=== PATIENT | male | born 1965 | race Caucasian/White ===

== ENCOUNTER 2017-11-08 18:26 | Emergency (ER) | payer BC ==
[2017-11-08] MEDS ORDERED: diphenhydrAMINE 50 MG/ML SDV IVPUSH ONE (19:04)
[2017-11-08] MEDS ORDERED: Haloperidol Lactate 5 MG/ML SDV IM ONE (19:04)
[2017-11-08] MEDS ORDERED: Sodium Chloride 0.9% 1,000 ML IV ONE (19:04)
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
--- NOTE | 2017-11-09 08:07 | CT ---
Head CT Technique: Multiple axial sections through the brain were obtained. Intravenous contrast was not utilized. Comparison: No prior intracranial imaging. Findings: Ventricles along with basal cisterns and sulci over the convexities are within normal limits for the patient's age. No abnormal parenchymal densities are seen. No evidence of intracranial hemorrhage. No midline shift or mass effect is seen. Bone window settings were reviewed which show no acute calvarial abnormality. Visualized sinuses are clear. Impression: 1. No acute intracranial abnormality is identified. Diagnostic code #1 Agree with preliminary report issued by [facility] ([facility] preliminary report dictated on 11/08/17, 9:32 PM Central Time)
== END 2017-11-08 21:17 | disposition home or self-care (01) ==
LOC: JD.ED 18:26
DX: G43.009 Migraine without aura, not intractable, without status migrainosus (principal); Z88.0 Allergy status to penicillin; Z79.899 Other long term (current) drug therapy
CPT/HCPCS: 70450; 96361; 96372; 96374; 99284; J1200; J1630; J7040

== ENCOUNTER 2019-12-06 18:56 | Emergency (ER) | payer BC ==
[2019-12-06] MEDS ORDERED: Diphtheria,Pertussis(Acell),Tetanus Vaccine 0.5 ML Syringe IM ONE (20:17)
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
[2019-12-06] MEDS ORDERED: Clindamycin HCl 150 MG Cap PO STA (20:39)
--- NOTE | 2019-12-06 21:15 | CR ---
Right wrist: 4 views of the right wrist were obtained. Comparison: No previous study. Mild chondrocalcinosis is noted within the triangular fibrocartilage. Joint spaces within the wrist are preserved. 2 small calcifications are noted between the trapezium and first metacarpal most likely due to old injury. No acute fracture or other abnormality is seen. Impression: 1. Findings which are felt to be nonacute as noted above. 2. Right wrist study is otherwise unremarkable. 3. No radiopaque foreign object is appreciated. Diagnostic code #2 Study was dictated in [place] Standard Time
== END 2019-12-06 21:03 | disposition home or self-care (01) ==
LOC: JD.ED 18:56
DX: S61.531A Puncture wound without foreign body of right wrist, initial encounter (principal); Z23 Encounter for immunization; K21.9 Gastro-esophageal reflux disease without esophagitis; F41.9 Anxiety disorder, unspecified; F32.9 Major depressive disorder, single episode, unspecified; Z79.899 Other long term (current) drug therapy; Z88.0 Allergy status to penicillin; W31.1XXA Contact with metalworking machines, initial encounter
CPT/HCPCS: 73110; 90471; 90715; 99283; A9270

== ENCOUNTER 2021-05-22 16:25 | Emergency (ER) | payer BC, OTHER ==
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
--- NOTE | 2021-05-22 17:39 | CT ---
Head CT Technique: Multiple axial sections through the brain were obtained. Intravenous contrast was not utilized. Reconstructed coronal and sagittal images were obtained. Comparison: Prior head CT study of 11/08/17. Findings: Ventricles along with basal cisterns and sulci over the convexities are within normal limits for the patient's age. No abnormal parenchymal densities are seen. No evidence of intracranial hemorrhage is seen. No midline shift or mass-effect is seen. Bone window settings were reviewed. Visualized mastoid sinuses and paranasal sinuses show nothing acute. No acute calvarial abnormality is appreciated. Impression: 1. Nothing acute is seen on noncontrast head CT study. 2. No change seen from previous exam. 3. If patient's symptoms warrant further evaluation, MRI study could then be considered. Diagnostic code #1
[2021-05-22] MEDS ORDERED: LORazepam 2 MG/ML SDV IVPUSH ONE (19:37)
[2021-05-22] MEDS ORDERED: Aspirin 81 MG Tab.EC PO ONE (19:47)
[2021-05-22] MEDS ORDERED: Clopidogrel 75 MG Tab PO ONE (19:47)
[2021-05-22] MEDS ORDERED: Iopamidol 755 Mg/ML 100 ML Bottle IVPUSH ONE (20:04)
[2021-05-22] MEDS ORDERED: Sodium Chloride 0.9% 100 ML IV SCH (20:15)
[2021-05-22] MEDS: Sodium Chloride 0.9% 10 ML Syringe FLUSH SCH ×2 (20:23→21:26)
== END 2021-05-22 22:10 | disposition home or self-care (01) ==
LOC: JD.ED 16:25
DX: G45.9 Transient cerebral ischemic attack, unspecified (principal); K21.9 Gastro-esophageal reflux disease without esophagitis; Z88.0 Allergy status to penicillin; Z72.0 Tobacco use; Z79.02 Long term (current) use of antithrombotics/antiplatelets; Z79.899 Other long term (current) drug therapy
CPT/HCPCS: 36415; 70450; 70496; 70498; 80053; 82947; 84484; 85025; 85610; 85730; 93005; 96374; 99285; A9270; J2060; Q9967; 93010; 99284

== ENCOUNTER 2021-12-07 11:34 | Emergency (ER) | payer OTHER ==
[2021-12-07] MEDS ORDERED: Alum Hydrox/Mag Hydrox/Simeth 30 ML, Lidocaine 2% 15 ML PO ONE ×2 (13:24)
[2021-12-07] MEDS ORDERED: Famotidine 20 MG Tab PO ONE (13:25)
== END 2021-12-07 15:30 | disposition home or self-care (01) ==
LOC: JD.ED 11:34
DX: R10.13 Epigastric pain (principal); K21.9 Gastro-esophageal reflux disease without esophagitis; Z88.0 Allergy status to penicillin; Z79.82 Long term (current) use of aspirin; Z79.899 Other long term (current) drug therapy
CPT/HCPCS: 36415; 71045; 80053; 84484; 85025; 85610; 93005; 99284; A9270; 93010